=== PATIENT | female | born 1940 | race Caucasian/White ===

== ENCOUNTER 2017-10-20 10:24 | Observation (INO) | payer MEDICARE, MEDICAID ==
[~2017-10-20] VITALS: Ht 160 cm; Wt 31.8 kg
--- OUTSIDE RECORDS SUMMARY | ~2017-10-20 | XMS ---
Demographics + + + | Address | [address] | | | [place] [address] | + + + | Preferred Language | Unknown | + + + | Marital Status | Unknown | + + + | Sikhism Affiliation | Unknown | + + + | Race | Unknown | + + + | Ethnic Group | Unknown | + + + Author + + + | Author | [facility] | + + + | Organization | [facility] | + + + | Address | [address] | | | [place] [address] | + + + | Phone | | + + + Care Team Providers + + + + | Care Agent Contract Clerk Name | Role | Phone | + + + + Unavailable | Unavailable | + + + + PROBLEMS +---------+ + + +--------+ + + | Type | Condition | ICD9-CM | BAC11-[id number] | Onset | Condition | SNOMED | | | | Code | Code | Dates | Status | Code | +---------+ + + +--------+ + + | Problem | Acquired | E03.9 | | | Active | [id number] | | | hypothyroi | | | | | | | | dism | | | | | | +---------+ + + +--------+ + + | Problem | COPD | | J44.9 | | Active | 53128571 | | | (chronic | | | | | | | | obstructiv | | | | | | | | e | | | | | | | | pulmonary | | | | | | | | disease) | | | | | | +---------+ + + +--------+ + + | Problem | Anxiety | | F41.9 | | Active | 78401356 | +---------+ + + +--------+ + + | Problem | Hyperchole | | E78.0 | | Active | 091933906 | | | steremia | | | | | | +---------+ + + +--------+ + + | Problem | Anemia, | D64.9 | | | Active | 457283955 | | | unspecifie | | | | | | | | d type | | | | | | +---------+ + + +--------+ + + | Problem | Tobacco | | Z72.0 | | Active | 318260603 | | | use | | | | | | | | disorder | | | | | | +---------+ + + +--------+ + + | Problem | Hypertensi | I11.9 | | | Active | 55210930 | | | ve | | | | | | | | arterioscl | | | | | | | | erotic | | | | | | | | cardiovasc | | | | | | | | ular | | | | | | | | disease | | | | | | +---------+ + + +--------+ + + | Problem | Vitamin D | | E55.9 | | Active | 64290018 | | | deficiency | | | | | | +---------+ + + +--------+ + + | Problem | Hypomagnes | | E83.42 | | Active | 621428754 | | | emia | | | | | | +---------+ + + +--------+ + + ALLERGIES + + + + +--------+ | Substance | Reaction | Event Type | Date | Status | + + + + +--------+ | Codeine | Unknown | Drug Allergy | May, | Active | + + + + +--------+ | IV contrast dye | very ill, non | Non Drug | May, | Active | | | anaphylaxis-pt | Allergy | | | | | tolerates the | | | | | | dye with | | | | | | premedication | | | | | | with prednisone | | | | | | cimetadine and | | | | | | benadryl | | | | + + + + +--------+ SOCIAL HISTORY Never Assessed PLAN OF CARE + +---------+ | Activity | Details | + +---------+ +---+ | | +---+ + + + | Follow Up | 2 Months Reason:null | + + + | Pending Test | Comp. Metabolic Panel (14) | + + + | Pending Test | Iron Deficiency Panel | + + + | Pending Test | TSH, 3rd Generation | + + + | Pending Test | Vitamin B12 | + + + | Pending Test | Folate | + + + | Pending Test | Vitamin D 25-OH | + + + | Pending Test | CBC | + + + VITAL SIGNS + + + + | Height | 65 in | 2017-06-10 | + + + + | Weight | 66.2 lbs | 2017-06-10 | + + + + | BMI | 11.02 kg/m2 | 2017-06-10 | + + + + | Heart Rate | 97 /min | 2017-06-10 | + + + + | Blood pressure systolic | 148 mm Hg | 2017-06-10 | + + + + | Blood pressure diastolic | 45 mm Hg | 2017-06-10 | + + + + MEDICATIONS + + + + + + + +--------+ | Medicati | Instruct | Dosage | Frequenc | Start | End Date | Duration | Status | | on | ions | | y | Date | | | | + + + + + + + +--------+ | Flovent | Inhalati | 2 puffs | 12h | Dec, | Dec, | | Active | | HFA 220 | on Twice | | | 2015 | 2016 | | | | MCG/ACT | a day | | | | | | | + + + + + + + +--------+ | PredniSO | | TAKE TWO | | | | | Active | | NE 5MG | | TABLETS | | | | | | | | | BY | | | | | | | | | MOUTH | | | | | | | | | ONCE | | | | | | | | | DAILY | | | | | | + + + + + + + +--------+ | Serevent | Inhalati | 1 puff | 12h | | | | Active | | Diskus | on Twice | | | | | | | | 50 | a day | | | | | | | | MCG/DOSE | | | | | | | | + + + + + + + +--------+ | Mirtazap | Orally | 1 tablet | 24h | | | | Active | | ine 15 | Once a | on the | | | | | | | MG | day | tongue | | | | | | | | | and | | | | | | | | | allow to | | | | | | | | | | | | | | | | | | dissolve | | | | | | | | | at | | | | | | | | | bedtime | | | | | | + + + + + + + +--------+ | Ipratrop | Inhalati | 3 ml | | 11 Apr, | | | Active | | ium-Albu | on Four | | | 2016 | | | | | terol | times a | | | | | | | | 0.5-2.5 | day prn | | | | | | | | (3) | | | | | | | | | MG/3ML | | | | | | | | + + + + + + + +--------+ | Spiriva | | INHALE | | | | | Active | | HandiHal | | ONE DOSE | | | | | | | er 18MCG | | BY | | | | | | | | | MOUTH | | | | | | | | | ONCE | | | | | | | | | DAILY | | | | | | + + + + + + + +--------+ | Citalopr | Orally | 1 tablet | 24h | 17 Nov, | | | Active | | am | Once a | | | 2015 | | | | | Hydrobro | day | | | | | | | | mide 20 | | | | | | | | | MG | | | | | | | | + + + + + + + +--------+ | Ventolin | Inhalati | 2 puffs | 4h | | | | Active | | HFA 108 | on every | as | | | | | | | (90 | 4 hrs | needed | | | | | | | Base) | | | | | | | | | MCG/ACT | | | | | | | | + + + + + + + +--------+ | Oxygen | | 4L/min | | | | | Active | + + + + + + + +--------+ RESULTS No Results PROCEDURES + + +--------+ + | Procedure | Date Ordered | Result | Body Site | + + +--------+ + | Influenza Medicare | Jun 10, 2017 | | | + + +--------+ + | ADMN FLU VAC | Jun 10, 2017 | | | + + +--------+ + IMMUNIZATIONS + + + + + | Vaccine | Route | Administration Date | Status | + + + + + | Influenza Medicare | IM Intramuscular | Jun 10, 2017 | Administered | + + + + + MEDICAL (GENERAL) HISTORY + + + + | Type | Description | Date | + + + + | Medical History | Asthma dx'ed age 4 | | + + + + | Medical History | GERD | | + + + + | Medical History | Hypercholestrol | | + + + + | Medical History | Osteoporosis - | | | | bisphosphonates resulted in | | | | GI upset, was started on | | | | Reclast summer 2011 | | + + + + | Medical History | Squamous cell ca - forehead | | + + + + | Medical History | Bipolar dx'ed age 22 | | + + + + | Medical History | Depression | | + + + + | Medical History | Lung nodule 2003 | | | | images no change ([facility] | | | | in [place])- | | | | [facility] | | + + + + | Medical History | COPD dx'ed 2005 | | + + + + | Medical History | Tobacco use | | + + + + | Medical History | Mitral valve prolapse | | + + + + | Medical History | Peripheral Vascular Disease | | + + + + | Medical History | Chronic steroid use | | + + + + | Medical History | | | + + + + | Medical History | Oxygen 2L/min since d/c | | | | from hospital 02/2011 | | + + + + | Medical History | higher Blood pressure R>L | | + + + + | Medical History | Vitamin D deficiency | | + + + + | Medical History | Swallowing difficulty | | + + + + | Medical History | Hypothyroid | | + + + + | Medical History | Carpal tunnel b/l - | | | | moderately severe 02/16/16 | | + + + + | Medical History | Patient education packet on | | | | fall prevention and home | | | | safety questionnaire | | | | provided. 02/19/13 | | + + + + | Medical History | Estimated dietay calcium | | | | intake 500mg/day 02/19/13 | | + + + + | Medical History | FRAX calculation performed | | | | assessing 10 year | | | | probability of fracture. | | | | 49% risk of major | | | | osteoporotic fx, 35% risk | | | | of hip fx | | + + + + | Medical History | POLST filled - pt is DNR | | | | 12/28/13 | | + + + + | Surgical History | Hysterectomy | | + + + + | Surgical History | Cholecystectomy | | + + + + | Surgical History | Appendectomy | | + + + + | Surgical History | Dentures | | + + + + | Surgical History | Total hip Arthroplasty | 2007 | + + + + | Surgical History | Aortic Bifemoral graft | 1995 | + + + + | Surgical History | Bladder suspension | | + + + + | Surgical History | T&A | | + + + + | Surgical History | pulmonary consultation Dr | 02/04/11 | | | Estef[facility] Celestin | | + + + + | Surgical History | refusing colonoscopy | 02/13/11 | + + + + | Surgical History | DEXA - mean hip T-score | 03/11/11 | | | -3.7 ( 03/11/11). femoral | | | | T-score -4.1 (03/08/15) | | + + + + | Surgical History | XR/swallowing function - no | 06/28/11 | | | aspiration | | + + + + | Surgical History | R eye cataract surgery Dr | 07/28/12 | | | [place]. | | + + + + | Surgical History | Mammogram | 03/11/11 | + + + + | Surgical History | Nutrition assessment | 05/18/13 | + + + + | Surgical History | L sliding hip screw | 02/13/16 | | | fixation Dr Ziyler | | + + + + | Hospitalization History | [facility] exacerbation of COPD | 02/07-02/11/11 | + + + + | Hospitalization History | [facility] re: COPD exacerbation | 12/08-12/16/15 | + + + + | Hospitalization History | [facility] re: L hip fracture | 02/13/16 | + + + + | Hospitalization History | [facility] re: L | 02/12-02/21/16 | | | hip fracture | | + + + + | Hospitalization History | [facility] re: COPD | 08/05-08/09/16 | | | exacerbation | | + + + + | Hospitalization History | [facility] re: diarrhea and | 03/11/17 | | | dehydration | | + + + +"
--- OUTSIDE RECORDS SUMMARY | ~2017-10-20 | XMS ---
Demographics + + + | Address | [address] | | | [place] [address] | + + + | Preferred Language | Unknown | + + + | Marital Status | Unknown | + + + | Jew Affiliation | Unknown | + + + | Race | Unknown | + + + | Ethnic Group | Unknown | + + + Author + + + | Author | [facility] | + + + | Organization | [facility] | + + + | Address | [address] | | | [place] [address] | + + + | Phone | | + + + Care Team Providers + + + + | Care Used Building Materials Yard Worker Name | Role | Phone | + + + + Unavailable | Unavailable | + + + + PROBLEMS +---------+ + + +--------+ + + | Type | Condition | ICD9-CM | [id number] | Onset | Condition | SNOMED | | | | Code | Code | Dates | Status | Code | +---------+ + + +--------+ + + | Problem | Hypomagnes | | E83.42 | | Active | 759904299 | | | emia | | | | | | +---------+ + + +--------+ + + | Problem | Vitamin D | | E55.9 | | Active | 48362783 | | | deficiency | | | | | | +---------+ + + +--------+ + + | Problem | Chest wall | S20.212A | | | Active | 29372434 | | | | | | | | | | | contusion, | | | | | | | | left, | | | | | | | | initial | | | | | | | | encounter | | | | | | +---------+ + + +--------+ + + | Problem | Hyperchole | | E78.0 | | Active | 244803515 | | | steremia | | | | | | +---------+ + + +--------+ + + | Problem | Anemia, | D64.9 | | | Active | 264205852 | | | unspecifie | | | | | | | | d type | | | | | | +---------+ + + +--------+ + + | Problem | Confusion | F99 | | | Active | 252619706 | | | and | | | | | | | | disorienta | | | | | | | | tion | | | | | | +---------+ + + +--------+ + + | Problem | Acute low | M54.5 | | | Active | 064556435 | | | back pain | | | | | | | | without | | | | | | | | sciatica, | | | | | | | | unspecifie | | | | | | | | d back | | | | | | | | pain | | | | | | | | laterality | | | | | | +---------+ + + +--------+ + + | Problem | Compressio | S32.020D | | | Active | | | | n fracture | | | | | | | | of L2, | | | | | | | | with | | | | | | | | routine | | | | | | | | healing, | | | | | | | | subsequent | | | | | | | | encounter | | | | | | +---------+ + + +--------+ + + | Problem | Weakness | | R53.1 | | Active | 27146214 | +---------+ + + +--------+ + + | Problem | Acquired | E03.9 | | | Active | 196109867 | | | hypothyroi | | | | | | | | dism | | | | | | +---------+ + + +--------+ + + | Problem | Anxiety | | F41.9 | | Active | 77253416 | +---------+ + + +--------+ + + | Problem | Status | Z87.81 | | | Active | 325456630 | | | post | | | | | | | | fracture | | | | | | | | of hip | | | | | | +---------+ + + +--------+ + + | Problem | Status | Z91.89 | | | Active | 950063380 | | | post fall | | | | | | +---------+ + + +--------+ + + | Problem | COPD | | J44.9 | | Active | 97617111 | | | (chronic | | | | | | | | obstructiv | | | | | | | | e | | | | | | | | pulmonary | | | | | | | | disease) | | | | | | +---------+ + + +--------+ + + | Problem | Hypertensi | I11.9 | | | Active | 69177807 | | | ve | | | [...] + +--------+ + + | Problem | Acute | M54.42 | | | Active | 50583801 | | | left-sided | | | | | | | | low back | | | | | | | | pain with | | | | | | | | left-sided | | | | | | | | sciatica | | | | | | +---------+ + + +--------+ + + | Problem | Tobacco | | Z72.0 | | Active | 610264697 | | | use | | | | | | | | disorder | | | | | | +---------+ + + +--------+ + + ALLERGIES + + + + +--------+ | Substance | Reaction | Event Type | Date | Status | + + + + +--------+ | Codeine | Unknown | Drug Allergy | Mar, | Active | + + + + +--------+ | IV contrast dye | very ill, non | Non Drug | 11 Mar, 2017 | Active | | | anaphylaxis-pt | [...] + + + + +--------+ SOCIAL HISTORY No smoking Hx information available PLAN OF CARE + +---------+ | Activity | Details | + +---------+ +---+ | | +---+ + + + | Follow Up | 2 Months Reason:null | + + + VITAL SIGNS + + + + | Height | 65 in | 2017-03-25 | + + + + | Weight | 67.3 lbs | 2017-03-25 | + + + + | BMI | 11.20 kg/m2 | 2017-03-25 | + + + + | Temperature | 98.3 degrees Fahrenheit | 2017-03-25 | + + + + | Heart Rate | 86 /min | 2017-03-25 | + + + + | Blood pressure systolic | 131 mm Hg | 2017-03-25 | + + + + | Blood pressure diastolic | 55 mm Hg | 2017-03-25 | + + + + MEDICATIONS + [...] am | Once a | | | 2016 | | | | | Hydrobro | day | | | | | | | | mide 20 | | | | | | | | | MG | | | | | | | | + + + + + + + +--------+ | PredniSO | | TAKE TWO | | | | 30 | Active | | NE 5MG | [...] | | INHALE | | | | 30 | Active | | HandiHal | | [...] Inhalati | 2 puffs | 12h | 01 Dec, | 26 Dec, | 30 days | Active | | HFA 220 | on Twice | | | 2016 | 2017 | | | | MCG/ACT | a day | | | | | | | + + + + + + + +--------+ | Levothyr | | TAKE ONE | | | | 30 | Active | | oxine | | TABLET | | | | | | | Sodium | | BY MOUTH | | | | | | | 50MCG | | ONCE | | | | | | | | | DAILY IN | | | | | | | | | THE | | | | | | | | | MORNING | | | | | | | | | ON EMPTY | | | | | | | | | STOMACH | | | | | | + + + + + + + +--------+ | BuPROPio | | | | | | | Active | | n HCl ER | | | | | | | | | (SR) | | | | | | | | | 200 MG | | | | | | | | + + + + + + + +--------+ | Oxygen | | 4L/min | | | | | Active | + + + + + + + +--------+ | L-Methyl | | | | | | | Active | | folate | | | | | | | | | 15 MG | | | | | | [...] +--------+ RESULTS No Results PROCEDURES + + + + + | Procedure | Date Ordered | Related Diagnosis | Body Site | + + + + + | Office Visit, Est | March 25, 2017 | | | | Pt., Level 3 | | | | + + + + + IMMUNIZATIONS No Known Immunizations"
--- OUTSIDE RECORDS SUMMARY | ~2017-10-20 | XMS ---
Demographics + + + | Address | [address] | | | [place] [address] | + + + | Preferred Language | Unknown | + + + | Marital Status | Unknown | + + + | Rastafarian Affiliation | Unknown | + + + | Race | Unknown | + + + | Ethnic Group | Unknown | + + + Author + + + | Author | [facility] | + + + | Organization | [facility] | + + + | Address | [address] | | | [place] [address] | + + + | Phone | | + + + Care Team Providers + + + + | Care Line Locator Name | Role | Phone | + + + + Unavailable | Unavailable | + + + + PROBLEMS +---------+ + + +--------+ + + | Type | Condition | ICD9-CM | [id number] | Onset | Condition | SNOMED | | | | Code | Code | Dates | Status | Code | +---------+ + + +--------+ + + | Problem | Acquired | E03.9 | | | Active | [id number] | | | hypothyroi | | | | | | | | dism | | | | | | +---------+ + + +--------+ + + | Problem | COPD | | J44.9 | | Active | 93013690 | | | (chronic | | | | | | | | obstructiv | | | | | | | | e | | | | | | | | pulmonary | | | | | | | | disease) | | | | | | +---------+ + + +--------+ + + | Problem | Anxiety | | F41.9 | | Active | 26738252 | +---------+ + + +--------+ + + | Problem | Hyperchole | | E78.0 | | Active | 883034714 | | | steremia | | | | | | +---------+ + + +--------+ + + | Problem | Anemia, | D64.9 | | | Active | 009823084 | | | unspecifie | | | | | | | | d type | | | | | | +---------+ + + +--------+ + + | Problem | Tobacco | | Z72.0 | | Active | 097601834 | | | use | | | | | | | | disorder | | | | | | +---------+ + + +--------+ + + | Problem | Hypertensi | I11.9 | | | Active | 51666222 | | | ve | | | [...] | | E55.9 | | Active | 19435112 | | | deficiency | | | | | | +---------+ + + +--------+ + + | Problem | Hypomagnes | | E83.42 | | Active | 380423736 | | | emia | | | | | | +---------+ + + +--------+ + + ALLERGIES No Information SOCIAL HISTORY Never Assessed PLAN OF CARE + +---------+ | Activity | Details | + +---------+ +---+ | | +---+ + + + | Pending Test | CBC | + + + | Pending Test | Iron Deficiency Panel | + + + | Pending Test | TSH, 3rd Generation | + + + | Pending Test | Free T4 | + + + VITAL SIGNS MEDICATIONS Unknown Medications RESULTS No Results PROCEDURES No Known procedures IMMUNIZATIONS No Known Immunizations MEDICAL (GENERAL) HISTORY + + + + [...] ([facility] | | | | in [place])- | | | | [facility] | [...] Surgical History | Aortic Bifemoral graft | 1994 | + + + + | Surgical [...] surgery Dr | 07/28/12 | | | | | + + + + | Surgical History | Mammogram | 03/11/11 | + + + + | Surgical History | Nutrition assessment | 05/18/13 | + + + + | Surgical History | L sliding hip screw | 02/13/16 | | | fixation Dr Gryler | | + + + + | [...]
[~2017-10-20 10:24] MED LIST: ADVAIR HFA 115-12 GM INH; ALBUTEROL2.5 MG/3 M INH; ASMANEX220 MCG INH; ASPIRIN EC81 MG PO; BUPROPION HCL200 MG PO; CEFUROXIME500 MG PO; CITALOPRAM HBR10 MG PO; CLONAZEPAM0.5 MG PO; CLONAZEPAM1 MG PO; CRESTOR10 MG PO; FORADIL1 INHALATI INH; IPRAT-ALBUT 0.5-3 ML INH; L-METHYLFOLATE15 MG PO; LASIX20 MG PO; LEVAQUIN750 MG PO; LEVOTHYROXINE50 MCG PO; MIRTAZAPINE15 M1 PO; POTASSIUM CHLOR8 ME1 PO; PREDNISONE10 MG PO; PREDNISONE20 MG PO; PREDNISONE5 MG PO; RANITIDINE HCL150 MG PO; SEREVENT DISKU1 PUFF INH; SLOW RELEASE I250 MG PO; SPIRIVA18 MCG INH; SULFAMETHOXAZO1 EAC1 PO; VENTOLIN HFA18 GM INH
--- NOTE | 2017-10-20 13:00 | NUR ---
DEMETRIUS CARE DONE ON PATIENT. PATIENT TURNED ONTO LEFT SIDE. RN IN ROOM.
--- NOTE | 2017-10-20 13:11 | NUR ---
PATIENT REPOSITIONED TO RIGHT SIDE UPON ARRIVA. O2 IS 5L CLARIFIED BY DR. THOMAS. SCOPALAMINE PATCH PLACED TO LEFT EAR. 25MG FENTANYL PLACED ON LEFT ARM. HOSPICE TRAY DELIVERED FROM KITCHEN. FAMILY IS AT BEDSIDE AND PATIENT IS RESTING COMFORTABLY. RESP IS CURRENTLY 36.
[2017-10-20] MEDS ORDERED: CELEXA20 MG PO (13:20)
--- NOTE | 2017-10-20 13:36 | NUR ---
RESPONDED TO MAITE ESPITIA IN ER, LAMONT GASTON REQUESTED I VISIT WITH FAMILY. PT IS A DNR, AND THINGS LOOK LIKE THEY ARE TRENDING TO COMFORT CARE. DAUGHTER JANELLE AND SON IN [place] WHICH SHE LIVES WITH BOTH SEEM TO BE IN AGREEMENT. PT WAS ADMITTED TO M\S RM 113. HAD PRAYER WITH FAMILY. DIRECTING TALK TO PT, HER EYES WOULD OPEN SOME WHEN SPOKEN TO, BUT NO OTHER RESPONSE. WILL FOLLOW NEEDED
--- NOTE | 2017-10-20 13:43 | NUR ---
PATIENT CURRENTLY ON HER RT SIDE ON 5L/OXYMASK. SHE IS NOT RESPONSIVE, DOES NOT APPEAR TO BE IN ANY PAIN. 4 FAMILY MEMBERS ARE AT BEDSIDE WITH HOSPICE CARE CART IN THE ROOM FOR THEM.
--- NOTE | 2017-10-20 14:53 | NUR ---
PT ADMITTED TO MS RM 113. DAUGHTER JANELLE AND OTHER FAMILY IN . PT ASLEEP ON O2 MASK. FAMILY FEELS SHE IS MORE COMFORTABLE. THANKED ME FOR CHECKING, I WILL CONTINUE TO FOLLOW NEEDED
--- NOTE | 2017-10-20 14:53 | NUR ---
PATIENT STATUS REMAINS UNCHANGED. LABORED BREATHING ON 5 LITERS OXYMASK. NONRESPOSIVE. DAUGHTER AT BEDSIDE. DOES NOT APPEAR TO BE IN DISCOMFORT.
[2017-10-20] MEDS ORDERED: FLOVENT HFA12 G1 INH (15:44)
--- NOTE | 2017-10-20 15:44 | NUR ---
Hospice visit to discuss end of life care with pt's daughter Paco. Pt. has had rapid decline an decreased responsiveness. Booklet given "Gone from my Site". Daughter would like to wait a few days to see how patient responds to decide if she would like Hospice. Hospice numbers given.
--- NOTE | 2017-10-20 15:50 | NUR ---
SPENT AROUND 30 MINUTES WITH DAUGHTER. PATIENT NON-RESPONSIVE IN BED. SHE STATES PATIENT STARTED FEELING SICK YESTERDAY. SHE STATES PATIENT IS END-STAGE EMPHYSEMA. LAST SAW HER PCP 3 MONTHS AGO. STATES PATIENT USES 5LNC OXYGEN AT HOME THROUGH [facility]. DAUGHTER YOUNG BROWN [phone] HAS POA AND IS MAIN CAREGIVER. SHE STATES HER MOTHER DIDN'T WANT TO GO TO SNF OR A FACILITY. SHE STATES THEY HAVE TAKEN CARE OF HER FOR ABOUT 8 YEARS AT HOME AND WISH TO TAKE HER HOME WITH HOSPICE IF POSSIBLE. SHE IS AWARE HER MOTHER MIGHT NOT "MAKE IT" TO GO HOME. SHE WOULD LIKE TO TALK WITH SOMEONE FROM HOSPICE PROGRAM. WE DISCUSSED PROGRAM IN GENERAL. SHE STATES SHE AND HER FAMILY CAN PROVIDE 24/7 CARE FOR HER IF SHE GOES HOME. DR THOMAS UPDATED.
--- NOTE | 2017-10-20 16:05 | NUR ---
SPOKE WITH INTELLIGENT SYSTEMS ENGINEER ANUJA WHO WILL COME SPEAK WITH FAMILY IN ROOM.
--- NOTE | 2017-10-20 16:09 | NUR ---
PATIENT WILL OPEN HER EYES BRIEFLY TO HER NAME BEING SAID BRISKLY. I ASKED IF SHE WAS HURTING AND THE PATIENT SAID YES. 0.5mls/10MG SL MORPHINE GIVEN.
--- NOTE | 2017-10-20 16:13 | NUR ---
HOSPICE IS HERE NOW TALKING WITH THE FAMILY IN THE PATIENT'S ROOM.
[2017-10-20] MEDS ORDERED: IPRAT-ALBUT 0.5-3 ML INH (17:56)
--- NOTE | 2017-10-20 17:58 | NUR ---
Medications reconciled with patient's pharmacy records
--- NOTE | 2017-10-20 18:50 | NUR ---
PATIENT STILL HAS SOME LABORED BREATHING , BUT SEEMS MORE RELAXED SINCE HER SL MORPHINE AND SITTING THE HEAD OF HER HEAD UP. PATIENT REALLY IS NOT RESPONSIVE AT THIS TIME. SHE IS COMFORT MEASURES ONLY.
--- NOTE | 2017-10-20 21:13 | NUR ---
PT LAYING IN BED, EYES ARE OPEN. ANSWERS "YES" AND "NO" QUESTIONS FROM RN APPROPRIATLY. PT DENIED PAIN AT THIS TIME AND REFUSED PAIN MEDICATION. DAUGHTER IS AT BEDSIDE, SHE REPORTS THAT THE PATIENT APPEARS TO BE COMFORTABLE AT THIS TIME. ENCOURAGED DAUGHTER TO CALL IF EITHER NEED ANYTHING. GAVE DAUGHTER A FOLDING CHAIR SO THAT SHE COULD SIT BY PT AT BEDSIDE. NO INCONTINENCE AT THIS TIME. TURNED PT TO LEFT SIDE. PT ON 5L VIA OXYMASK. RR ARE EVEN BUT LABORED, DAUGHTER REPORTS THIS PT'S BASELINE. WILL CONTINUE TO MONITOR FOR PAIN AND DISCOMFORT.
--- NOTE | 2017-10-20 22:17 | NUR ---
DAUGHTER LEFT FOR THE NIGHT. PT STATED "YES," WHEN ASKED IF SHE HAD PAIN, AND "YES" WHEN ASKED IF SHE WOULD LIKE PAIN MEDICATION. OCCASIONAL GRIMMACE, LEGS SQUIRMING. GAVE MORPHINE SL FOR PAIN. TURNED LIGHTS DOWN IN ROOM. RE-ADJUSTED PT IN BED.
--- NOTE | 2017-10-20 23:40 | NUR ---
PT APPEARS ASLEEP, RR EVEN BUT LABORED AT THIS TIME. OXYMASK IN PLACE. NO APPARENT DISTRESS.
--- NOTE | 2017-10-21 01:59 | NUR ---
pt appears asleep, eyes are closed. repostioned in bed. no incontinence. rr even but labored at this time. oxymask in place. no apparent distress. pt opened eyes when moving her in bed, but did not respond. call light in reach.
--- NOTE | 2017-10-21 02:44 | NUR ---
morphine given to prepare for moving pt around, also per pt request. pt incontinent of bm, no urine. cleaned pt up and new attends and white chux in place. repositioned in bed. gave warm blanket. gave sips of water per pt request. pt tolerated all this well. pt answered "yes" when asked if she was comfortable at this time.
--- NOTE | 2017-10-21 04:44 | NUR ---
PT HAD UNEVENTFUL NIGHT. MORPHINE GIVEN FOR COMFORT X2 OVERNIGHT. TURNED Q2. BM X1. PT ANSWERS YES AND NO QUESTIONS APPROPRIATLY. DOES NOT USE CALL LIGHT. 5L VIA OXYMASK. FAMILY AT BEDSIDE LAST NIGHT.
--- NOTE | 2017-10-21 06:46 | NUR ---
pt grimmacing and appears more sob than a couple hours ago. more work of breathing at this time. gave morphine sl for sob and for comfort.
--- NOTE | 2017-10-21 07:39 | NUR ---
REPORT RECEIVED FROM LAMONT DIAZ. PT IN BED SLEEPING WITH OXY MASK IN PLACE. PT DAUGHTER AT BEDSIDE AND DENIES CONCERNS.
--- NOTE | 2017-10-21 08:55 | NUR ---
RN IN TO SEE PATIENT AND REPOSITIONED. DAUGHTER IN ROOM.
--- NOTE | 2017-10-21 08:58 | NUR ---
PT DAUGHTER STATED THAT HER MOTHER APPEAR ANXIOUS AND RESTLESS. ADMINISTERED PAIN MEDS AND ATIVAN AND ATROPINE DROPS FOR SECRETIONS. CHANGED DEPENDS WITH A LOOSE STOOL AND REPOSTIONED IN BED. DAUGHTER WIPING MOUTH WITH SWABS.
--- NOTE | 2017-10-21 09:47 | NUR ---
DAUGHTER STATES PT APPEARS MORE COMFORTABLE. DENIES NEEDS.
--- NOTE | 2017-10-21 11:32 | NUR ---
RN TO REPOSISTION PATIENT. GRANDSON IN ROOM.
--- NOTE | 2017-10-21 11:32 | NUR ---
GRANDSON NOTED THAT PT APPEARED UNCOMFORTABLE. HE SHIFTED HER IN BED AND ASSISTED WITH BOOST. ADMINISTERD PRN SL MORPH.
--- NOTE | 2017-10-21 12:48 | NUR ---
DAUGHTER IN ROOM TALKING WITH PASTOR PLOK. STATES PT IS COMFORTABLE AND DENIES ANY OTHER NEEDS. PT APPEARS COMFORTABLE IN BED.
--- NOTE | 2017-10-21 13:16 | NUR ---
JANELLE, PT'S DAUGHTER WAS IN RM. SHE WELCOMED ME IN, AND SEEMED AT EASE WITH HER MOTHERS CONDITION. SHE SELT SHE IS RESTING MORE PEACEFULLY, WITH PAIN UNDER CONTROL. SHE MENTIONED THAT SHE PLANS TO TAKE PT HOME AGAIN WITH HER FOLLOWING DC. SHE SEEMS TO HAVE LOTS OF HELP, AND SAID SHE WOULDN'T HAVE IT ANY OTHER WAY. WE DISCUSSED END OF LIFE ISSUES, UTILIZING THE RESOURCES OF [facility] THAT WILL BE CARING FOR PT. SHE THANKED ME FOR COMING. I EXTENDED A BLESSING TO PT, SHE DID NOT RESPOND. WILL FOLLOW NEEDED
--- NOTE | 2017-10-21 13:45 | NUR ---
PATIENT RESTING IN BED WITH EYES CLOSED. THIS ELECTRICAL TRYOUT PERSON WASHED PATIENTS FACE AND HANDS WITH WASHCLOTH. ORAL CARE DONE. SIDE RAILS UP.
--- NOTE | 2017-10-21 15:57 | NUR ---
ROTATED PT AND PLACED PILLOW UNDER SIDE. PT GRIMACED WITH MOVEMENT. ADMINISTERED 15MG OF SL MORPH .
--- NOTE | 2017-10-21 16:25 | NUR ---
TALKED WITH PT DAUGHTER YOUNG ABOUT THE MEDICARE OUTPT OBSERVATION LETTER AND SHE SIGNED THE FORM AFTER READING IT. YOUNG IS THE PTS POA. COPY OF LETTER MADE AND GIVEN TO [place]. TALKED TO [facility] AFTER THE PT DAUGHTER INFORMED ME THEY ARE TAKING THE PT HOME TOMORROW ON HOSPICE. SHE SAID WITH A HOSPITAL BED AND O2 PER IN HOME MED. [facility] SAID THEY MAY NOT BE ABLE TO GET HER ADMITTED TOMORROW, ADMISSION MIGHT HAVE TO BE FRIDAY. FAXED CHART NOTES INCLUDING FACESHEET AND H AND P, PER [employer] REQUEST. RECIEVED A FAX CONFIRMATION. CALLED AND SPOKE WITH [facility] WHO STATED THEY RECIEVED THE CHART NOTES.
--- NOTE | 2017-10-21 17:30 | NUR ---
PT TURNED Q2. HAD 1 LARGE BM THIS MORNING. MORPH, ATIVAN AND ATROPINE GIVEN MULTIPLE TIMES THROUGHOUT DAY. GRIMACES WHEN TURNED. DAUGHTER AT BEDSIDE. RR REGULAR BUT SHALLOW. HR IRREGULAR.
--- NOTE | 2017-10-21 18:10 | NUR ---
PATIENT RESTING IN BED WITH EYES CLOSED. PATIENT'S DAUGHTER STATES THAT THE PATIENT LOOKS COMFORTABLE RIGHT NOW AND DOESN'T NEED TO BE MOVED. DAUGHTER COMFRONTED ME THAT SHE'S NEVER EXPERIENCED ANYONE DIEING. THIS GEOLOGICAL SCIENCE TEACHER TALKED TO HER ABOUT HER CONCERNS AND LET HER KNOW IF SHE NEEDS ANYTHING OR HAS ANY QUESTIONS TO LET US KNOW. NO OTHER NEEDS AT THIS TIME.
--- NOTE | 2017-10-21 19:31 | NUR ---
no apparent distress at this time. rr even, but labored at this time. daughter at bedside, reports her mother appears to be comfortable at this time. turned q2h per dayshift report. pt's appears asleep, eyes are closed, relaxed position.
--- NOTE | 2017-10-21 21:15 | NUR ---
APPEARS TO BE SLEEPING. EYES ARE CLOSED. DAUGHTER LEFT FOR THE NIGHT.
--- NOTE | 2017-10-21 23:43 | NUR ---
PT APPEARS COMFORTABLE AT THIS TIME. APPEARS ASLEEP, EYE CLOSED, TACHYPNEIC. NO APPARENT DISTRESS AT THIS TIME. DIM LIGHTS ON IN ROOM AND TV ON. DAUGHTER MENTIONED EARLIER THAT PT LIKES TO WATCH TV AND THAT SHE WOULD KEEP IT ON AT NIGHT AT HER HOME.
--- NOTE | 2017-10-22 00:41 | NUR ---
PT RESTING QUIELTY AT THE MOMENT. REPOSITIONED PT IN BED. PT GRIMMACES WHEN REPOSITIONING, BUT QUICKLY APPEARED TO RELAX AND FALL BACK ASLEEP WHEN SETTLED.
--- NOTE | 2017-10-22 03:14 | NUR ---
PT EYES ARE OPEN AND HANDS ARE CLENCHED. TACHYPNEIC. LABORED RESPIRATIONS. AUDIBLE WET BREATHING SOUNDS. GAVE MORPHINE SL AND ATROPINE DROPS. ALSO ADMINISTERED EYE DROPS FOR DRY EYES.
--- NOTE | 2017-10-22 03:28 | NUR ---
pt appears to be sleeping at this time. no apparent distress.
--- NOTE | 2017-10-22 04:03 | NUR ---
pt at [phone]. dr [facility].
--- NOTE | 2017-10-22 06:20 | NUR ---
PT LEFT WITH [facility]. FAMILY IN PRIOR TO PT LEAVING.
--- NOTE | 2017-10-22 13:16 | NUR ---
I WAS CALLED IN FOR PT . I NOTIFIED THE DAUGHTER, YOUNG. SHE SAID SHE WOULD COME UP FOR A FEW MINUTES. SHE BROUGHT HER FAMILY WITH HER. I GAVE THEM SOME TIME ALONE, THEN WENT IN TO TALK WITH THEM. I PRAYED WITH THEM, THEN ASKED HER TO SIGN RELEASE FORM. WE THEN TALKED A BIT MORE, THEN THEY LEFT. AFTER THEY LEFT I CALLED [facility], WAITED FOR THEIR TRANSPORT VAN, ESCORTED THE BODY, COVERED WITH PASSAGE QUILT, TO THE VAN AND WATCHED IT DRIVE AWAY.
== END 2017-10-22 03:55 ==
LOC: ED 10:24 → MS 10:26
PROVIDERS: ADMIT Internal Medicine
DX: J44.1 Chronic obstructive pulmonary disease with (acute) exacerbation (principal); Z51.5 Encounter for palliative care; J96.11 Chronic respiratory failure with hypoxia; E03.9 Hypothyroidism, unspecified; F39 Unspecified mood [affective] disorder; Z99.81 Dependence on supplemental oxygen; Z66 Do not resuscitate; Z74.01 Bed confinement status; Z79.52 Long term (current) use of systemic steroids; Z79.899 Other long term (current) drug therapy; Z88.5 Allergy status to narcotic agent; Z88.1 Allergy status to other antibiotic agents; Z91.041 Radiographic dye allergy status
CPT/HCPCS: 36415; 71045; 80048; 85025; 99285; G0378